=== PATIENT | female | born 1985 | race Caucasian/White ===

== ENCOUNTER 2016-03-12 18:21 | Emergency (ER) | payer OTHER ==
[~2016-03-12] VITALS: Ht 165.1 cm; Wt 120.4 kg
[~2016-03-12 18:21] MED LIST: DICL-201 PO; amitriptyline PO
[2016-03-12 18:26] VITALS: TEMP 36.7; Ht 165.1 cm; Wt 120.4 kg
[2016-03-12] MEDS ORDERED: ACET-1256 PO (18:30)
[2016-03-12] MEDS ORDERED: AMIT50TA3 PO (18:52)
--- NOTE | 2016-03-12 19:20 | DIAGNOSTIC IMAGING REPORT ---
RIGHT TIBIA/FIBULA 2 VIEWS ROUTINE CLINICAL HISTORY: Right leg pain and swelling. No recent trauma. COMPARISON: Right ankle radiographs August 08, 2012. FINDINGS: An intramedullary manuel with proximal and distal screws within the right tibia is noted. Fractures within the mid shaft of the right tibia and fibular are noted. No acute fracture of the right tibia or fibula is identified. Talar dome is intact. Hardware is intact. There is moderate posterior calcaneal spurring and mild plantar calcaneal spurring. IMPRESSION: 1. No acute fracture of the right tibia or fibula. 2. Healed fractures of the right tibia and fibula status post internal fixation of the tibia. Electronically signed by: Anant Dunn M.D. 03/12/2016 7:18 PM Dictated Date/Time: 03/12/2016 7:16 PM
--- NOTE | 2016-03-12 20:06 | DIAGNOSTIC IMAGING REPORT ---
RIGHT LOWER EXTREMITY VENOUS DOPPLER CLINICAL HISTORY: Right leg pain and swelling. COMPARISON STUDY: None TECHNIQUE: Sonography of the deep venous system of the right lower extremity was performed. Compression and augmentation were evaluated. FINDINGS: The right common femoral, superficial femoral and popliteal veins were compressible. Augmentation was normal. Flow was shown within the deep calf vessels. IMPRESSION: No evidence of deep venous thrombus within the right lower extremity. Electronically signed by: Anant Dunn M.D. 03/12/2016 8:04 PM Dictated Date/Time: 03/12/2016 8:04 PM
[2016-03-12 20:26] VITALS: BP 145/89; PULSE 87; O2SAT 100
[2016-03-12] MEDS ORDERED: HYDR-5688 PO (20:28)
--- NOTE | 2016-03-12 20:31 | EMERGENCY ROOM VISIT NOTE ---
History First contact with patient: 18:28 Chief Complaint: LEG PAIN,LEG INJURY Stated Complaint: RIGHT LEG AND HIP PAIN History of Present Illness The patient is a 31 year old female who presents to the Emergency Room with complaints of right lower leg pain which began a few days ago. The patient states that she has metal plates in her leg due to a fracture several years ago. She states that over the past several days, she has noticed that her leg swells it is painful to walk. It is worse after she is standing during the day. The patient denies any new injury to the leg. She rates the overall discomfort a 7/10. She has not been taking anything at home for the pain. The patient also does have a history of chronic back pain with radiation down the leg, but states this is typically on the left side. She denies any numbness or weakness of the leg. She denies any erythema, warmth or fevers. Review of Systems A complete 6 point review of systems was reviewed with the patient with pertinent positives and negatives as per history of present illness. All else were negative. Past Medical/Surgical History Medical Problems: (1) Active labor at term (2) Amniotic fluid leaking (3) Asthma (4) Bacterial pneumonia (5) Benign hypertension (6) Bronchitis (7) Depressive disorder (8) Dizziness (9) First trimester (10) History of methamphetamine abuse (11) Multiple abrasions (12) Multiple contusions (13) Other specified complication, antepartum (14) Uterine contractions Surgical Problems: (1) Ectopic (2) sialadenectomy Family History Diabetes mellitus Social History Smoking Status: Current Every Day Smoker Alcohol Use: occasionally Drug Use: none Marital Status: single Housing Status: lives with significant other Current/Historical Medications Scheduled Amitriptyline Hcl (Amitriptyline Hcl), 50 MG PO HS Diclofenac (Voltaren), 75 MG PO BID Scheduled PRN Acetaminophen (Tylenol), 500 MG PO UD PRN for Pain Hydrocodone/Acetaminophen 5MG/325MG ([place] 5MG/325MG), 1-2 TABLET PO Q4H PRN for Pain Allergies Coded Allergies: Paroxetine (Verified Allergy, Intermediate, EXCESSIVE SEDATION, 09/16/15) Codeine (Verified Allergy, Mild, SHORTNESS OF BREATH, 09/16/15) UNSURE OF REACTION, THINKS IT SPEEDS UP HER HEART Pam (Verified Allergy, Mild, ANAPHYLAXIS, 09/16/15) swelling,hives, sob Lamotrigine (Verified Allergy, Mild, rash, 09/16/15) Cinnamon (Verified Allergy, Unknown, ANAPHYLAXIS, 09/16/15) swelling hives Physical Exam Vital Signs Date Time Temp Pulse Resp B/P Pulse Ox O2 Delivery O2 Flow Rate FiO2 03/12/16 20:26 87 18 145/89 100 Room Air 03/12/16 18:26 36.7 86 20 141/91 98 Room Air Physical Exam VITALS: Vitals are noted on the nurse's note and reviewed by myself. Vital signs stable. GENERAL: This is a 31-year-old female, in no acute distress, nondiaphoretic, well-developed well-nourished. MUSCULOSKELETAL: Mild tenderness to palpation of the right posterior lower leg. No erythema, warmth, bruising or palpable cords. Minimal swelling of the right calf compared to the left. Pedal pulses intact. NEURO: Patient was alert and oriented to person place and time. Normal sensation to light and sharp touch. Medical Decision & Procedures ER Provider Diagnostic Interpretation: RIGHT LOWER EXTREMITY VENOUS DOPPLER FINDINGS: The right common femoral, superficial femoral and popliteal veins were compressible. Augmentation was normal. Flow was shown within the deep calf vessels. IMPRESSION: No evidence of deep venous thrombus within the right lower extremity. RIGHT TIBIA/FIBULA 2 VIEWS ROUTINE FINDINGS: An intramedullary manuel with proximal and distal screws within the right tibia is noted. Fractures within the mid shaft of the right tibia and fibular are noted. No acute fracture of the right tibia or fibula is identified. Talar dome is intact. Hardware is intact. There is moderate posterior calcaneal spurring and mild plantar calcaneal spurring. IMPRESSION: 1. No acute fracture of the right tibia or fibula. 2. Healed fractures of the right tibia and fibula status post internal fixation of the tibia. Medical Decision Differential diagnosis includes DVT, muscle strain, fracture, infection, among others. The patient was evaluated as above. X-ray of the right tibia/fibula was performed and read by radiology with no acute findings. There were no fractures and the hardware appeared to be intact. Ultrasound of the right lower extremities was performed and showed no DVT within the right lower extremity. The patient may be experiencing some arthritis, as she has had surgery of the right lower extremity in the past. She was encouraged to follow- up with her primary care provider for further evaluation of the pain. She was given a prescription for a short course of pain medication. She verbalized understanding of my assessment and treatment plan and was discharged home in good condition. [facility] Drug Monitoring Program Search Results: patient reviewed within database, no issues identified Impression Primary Impression: Leg pain, right Departure Information Dispostion Home / Self-Care Condition GOOD Prescriptions Hydrocodone/Acetaminophen 5MG/325MG ([place] 5MG/325MG) Tab 1-2 TABLET PO Q4H Y for Pain, #15 TAB For Initial Treatment Prov: Esthela Cabral .DEACON 03/12/16 Referrals Dianna Cummings PA-C (PCP) Patient Instructions A Signature Page, My [email or web address] Additional Instructions For pain control, you can use the following [id number] medicines (if >12 yo): - Regular strength (325mg/tab) Tylenol (acetaminophen) 2 tabs every 4-6 hours as needed. Do not exceed 12 tablets in a 24 hour period. Avoid taking more than 4 grams (4000 mg) of Tylenol per day. This includes any other sources of acetaminophen you may take on a regular basis. - Regular strength (200 mg/tab) Advil (ibuprofen) 1-2 tabs every 4-6 hours as needed. Do not exceed a dose of 3200 mg per day. You have been prescribed [place] to be used for pain control. Take 1-2 tablets every 4-6 hours as needed for pain. This is a narcotic medication. You cannot drive or consume alcohol while on this medicine. This medicine should only be used for pain that cannot be controlled with [id number] pain medicines. Follow-up with your primary care provider for further evaluation of your leg pain. Return to the emergency department with any new/concerning symptoms.
== END 2016-03-12 20:37 | disposition home or self-care (01) ==
LOC: C.EDB 18:24 → C.EDD 20:37
DX: M79.604 Pain in right leg (principal); Z87.81 Personal history of (healed) traumatic fracture; J45.909 Unspecified asthma, uncomplicated; I10 Essential (primary) hypertension; F32.9 Major depressive disorder, single episode, unspecified; Z83.3 Family history of diabetes mellitus; F17.210 Nicotine dependence, cigarettes, uncomplicated; Z79.899 Other long term (current) drug therapy

== ENCOUNTER 2016-05-12 15:02 | Emergency (ER) | payer OTHER ==
[~2016-05-12] VITALS: Ht 165.1 cm; Wt 120.0 kg
[~2016-05-12 15:02] MED LIST changes: +ACET-1256 PO; +AMIT50TA3 PO; +HYDR-5688 PO; -amitriptyline PO
[2016-05-12 15:06] VITALS: TEMP 37; Ht 165.1 cm; Wt 120.0 kg
[2016-05-12] MEDS ORDERED: CYCL10TA6 PO (16:18)
[2016-05-12] MEDS ORDERED: PRED50TA PO (16:18)
[2016-05-12] MEDS ORDERED: HYDR-5688 PO (16:18)
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
[2016-05-12 16:32] VITALS: BP 126/84; PULSE 79; O2SAT 99
== END 2016-05-12 16:34 | disposition home or self-care (01) ==
LOC: C.EDB 15:04 → C.EDD 16:34
DX: M54.5 Low back pain (principal); F17.200 Nicotine dependence, unspecified, uncomplicated; J45.909 Unspecified asthma, uncomplicated; I10 Essential (primary) hypertension; F32.9 Major depressive disorder, single episode, unspecified; Z87.01 Personal history of pneumonia (recurrent); Z98.890 Other specified postprocedural states; Z86.32 Personal history of gestational diabetes; Z91.410 Personal history of adult physical and sexual abuse; Z87.59 Personal history of other complications of pregnancy, childbirth and the puerperium; Z90.89 Acquired absence of other organs; Z79.52 Long term (current) use of systemic steroids; Z79.899 Other long term (current) drug therapy

== ENCOUNTER 2016-06-02 13:59 | Emergency (ER) | payer OTHER ==
[~2016-06-02] VITALS: Ht 165.1 cm; Wt 119.0 kg
[2016-06-02 14:03] VITALS: TEMP 36.9; Ht 165.1 cm; Wt 119.0 kg
[2016-06-02] MEDS ORDERED: AMOX500C3 PO (14:11)
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
[2016-06-02 15:31] VITALS: BP 130/90; PULSE 87; O2SAT 99
[2016-06-05 01:46] LABS: CHLAMYDIA TRACH RNA*** NOT DETECTED (NOT DETECTED); GC (NEIS GONORRHOEAE)RNA** NOT DETECTED (NOT DETECTED)
[2016-06-06 02:29] LABS: HSV TYPE 1 DNA Not Detected (Not Detected); HSV TYPE 1&2 DNA SOURCE Whole Blood; HSV TYPE 2 DNA Not Detected (Not Detected)
== END 2016-06-02 15:33 | disposition home or self-care (01) ==
LOC: C.EDB 14:01 → C.EDC 15:33
DX: Z11.3 Encounter for screening for infections with a predominantly sexual mode of transmission (principal); Z72.51 High risk heterosexual behavior; J45.909 Unspecified asthma, uncomplicated; Z87.01 Personal history of pneumonia (recurrent); I10 Essential (primary) hypertension; F32.9 Major depressive disorder, single episode, unspecified; Z83.3 Family history of diabetes mellitus; F17.210 Nicotine dependence, cigarettes, uncomplicated

== ENCOUNTER 2016-10-01 17:55 | Emergency (ER) | payer OTHER ==
[~2016-10-01] VITALS: Ht 165.1 cm; Wt 130.8 kg
[~2016-10-01 17:55] MED LIST changes: +AMOX500C3 PO; -DICL-201 PO
[2016-10-01 17:56] VITALS: TEMP 36.8; Ht 165.1 cm; Wt 130.8 kg
[2016-10-01] MEDS ORDERED: IBUPROFEN 600 MG TAB PO STA (18:12)
[2016-10-01] MEDS ORDERED: NRN300 PO ×2 (18:16)
[2016-10-01] MEDS ORDERED: GABA-113 PO (18:16)
[2016-10-01] MEDS ORDERED: ROPI0.5T15 PO (18:16)
[2016-10-01] MEDS ORDERED: AMT50 PO (18:16)
--- NOTE | 2016-10-01 18:26 | DIAGNOSTIC IMAGING REPORT ---
LEFT KNEE 1 OR 2 VIEWS ROUTINE CLINICAL HISTORY: knee pain pain COMPARISON: None. DISCUSSION: Mild degenerative change articular services of all major joint compartments. Minimal chondrocalcinosis. No significant joint effusion. No acute bony abnormality. There is no evidence for soft tissue swelling. IMPRESSION: Mild degenerative change. Minimal chondrocalcinosis. No acute process. The above report was generated using voice recognition software. It may contain grammatical, syntax or spelling errors. Electronically signed by: Mian Cooper M.D. 10/01/2016 6:25 PM Dictated Date/Time: 10/01/2016 6:24 PM
[2016-10-01] MEDS ORDERED: HYDROCODONE/ACETAMOPHEN 5/325MG TAB PO STA (18:37)
[2016-10-01] MEDS ORDERED: HYDR-5688 PO (18:40)
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
[2016-10-01 19:01] VITALS: BP 149/89; PULSE 89; O2SAT 100
== END 2016-10-01 19:02 | disposition home or self-care (01) ==
LOC: C.EDB 17:56 → C.EDC 19:02
DX: M25.562 Pain in left knee (principal); I10 Essential (primary) hypertension; F32.9 Major depressive disorder, single episode, unspecified; J45.909 Unspecified asthma, uncomplicated; Z79.899 Other long term (current) drug therapy; Z87.01 Personal history of pneumonia (recurrent); Z87.09 Personal history of other diseases of the respiratory system

== ENCOUNTER 2016-12-12 12:24 | Emergency (ER) | payer OTHER ==
[~2016-12-12] VITALS: Ht 165.1 cm; Wt 128.6 kg
[~2016-12-12 12:24] MED LIST changes: -ACET-1256 PO; -AMIT50TA3 PO; -AMOX500C3 PO; +AMT50 PO; +GABA-113 PO; +NRN300 PO; +ROPI0.5T15 PO
[2016-12-12 12:40] VITALS: TEMP 36.8; Ht 165.1 cm; Wt 128.6 kg
[2016-12-12] MEDS ORDERED: ROPI0.5T15 PO (12:52)
[2016-12-12] MEDS ORDERED: DULO60CA44 PO (12:52)
[2016-12-12] MEDS ORDERED: IBUPROFEN 600 MG TAB PO STA (13:08)
--- NOTE | 2016-12-12 13:13 | EMERGENCY ROOM VISIT NOTE ---
ED Visit Note First contact with patient: 12:59 CHIEF COMPLAINT: Finger laceration HISTORY OF PRESENT ILLNESS: This 31-year-old female patient presents to the emergency department immediately after cutting the right fourth finger on a piece of glass at work. The bleeding has not stopped. Denies weakness or numbness of the finger. The patient has full range of motion of the fingers. The patient rates the pain as throbbing and 8/10. The patient denies any other injuries. The patient's tetanus shot is up to date. REVIEW OF SYSTEMS: A 6 system review of systems was completed with positives and pertinent negatives listed in the HPI. ALLERGIES: Lamictal, Paxil MEDICATIONS: Reviewed PMH: Asthma SOCIAL HISTORY: Smokes one pack of cigarettes per day, denies alcohol use PHYSICAL EXAM: Vital Signs: Reviewed Nurse's notes, vital signs stable. GENERAL : 31-year-old female, in no acute distress, well developed, well nourished. SKIN: There are 2 small approximately 2 mm, superficial lacerations to the dorsal aspect of the right fourth finger. The distal laceration has very mild bleeding. The wounds do not gape with traction. Extension and flexion of the finger is full and strong. Full range of motion of the wrist and other fingers. Capillary refill less than 2 seconds. Normal sensation to light and sharp touch. EMERGENCY DEPARTMENT COURSE: I examined the patient. The wounds were thoroughly cleansed with Betadine and saline. A piece of Gelfoam was applied to the distal wound. She was given a bandage. The patient was discharged home in good condition. DIAGNOSIS: Finger laceration DISCHARGE INSTRUCTIONS & TREATMENT: Keep the wound bandage for 24 hours. After that, you may remove the bandage. Gently soak the finger in water to remove the Gelfoam. Please watch for signs of infection such as redness, swelling or fever. Follow up with your primary care physician as needed.
[2016-12-12] MEDS ORDERED: GELATIN SPONGE 12-7MM EXT ONE (13:15)
[2016-12-12 13:27] VITALS: BP 126/87; PULSE 79; O2SAT 95
== END 2016-12-12 13:42 | disposition home or self-care (01) ==
LOC: C.EDB 12:25 → C.EDD 13:42
DX: S61.214A Laceration without foreign body of right ring finger without damage to nail, initial encounter (principal); W45.8XXA Other foreign body or object entering through skin, initial encounter; Y92.89 Other specified places as the place of occurrence of the external cause; Y99.0 Civilian activity done for income or pay; J45.909 Unspecified asthma, uncomplicated; Z88.8 Allergy status to other drugs, medicaments and biological substances

== ENCOUNTER → 2017-04-26 | Outpatient (CLI) | payer OTHER ==
[~2017-04-26] MED LIST changes: +ACET-1256 PO; +DULO60CA44 PO; -GABA-113 PO; -HYDR-5688 PO; -NRN300 PO; -ROPI0.5T15 PO; +ROPI2TAB6 PO
== END | disposition home or self-care (01) ==
LOC: C.LABSPEC 17:38
PROVIDERS: ATTEND Physician Assistant
DX: Z11.3 Encounter for screening for infections with a predominantly sexual mode of transmission (principal)

== ENCOUNTER 2017-05-27 14:56 | Emergency (ER) | payer OTHER ==
[~2017-05-27] VITALS: Ht 152.4 cm; Wt 140.3 kg
[2017-05-27 14:58] VITALS: Ht 152.4 cm; Wt 140.3 kg
[2017-05-27 15:42] VITALS: BP 135/94; PULSE 95; TEMP 37; O2SAT 93
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
== END 2017-05-27 15:44 | disposition home or self-care (01) ==
LOC: C.EDB 14:58 → C.EDD 15:44
DX: M17.12 Unilateral primary osteoarthritis, left knee (principal); I10 Essential (primary) hypertension

== ENCOUNTER → 2017-07-11 | Outpatient (CLI) | payer OTHER ==
--- NOTE | 2017-07-11 16:15 | DIAGNOSTIC IMAGING REPORT ---
L KNEE 1 OR 2 VIEWS ROUTINE HISTORY: 32 years-old Female B KNEE PAIN chronic bilateral knee pain COMPARISON: Right knee radiographs of same day TECHNIQUE: 2 views of the left knee FINDINGS: Mild medial and lateral with mild to moderate patellofemoral compartment osteoarthritis with marginal spurring. Trace joint effusion. No acute fracture or dislocation. No opaque foreign body. IMPRESSION: Degenerative changes without acute fracture. The above report was generated using voice recognition software. It may contain grammatical, syntax or spelling errors. Electronically signed by: Kyle Martin M.D. 07/11/2017 4:14 PM Dictated Date/Time: 07/11/2017 4:13 PM
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
== END | disposition home or self-care (01) ==
LOC: C.RADBC 15:50
PROVIDERS: ATTEND Physician Assistant Medical
DX: M25.561 Pain in right knee (principal); M25.562 Pain in left knee; M17.12 Unilateral primary osteoarthritis, left knee